=== PATIENT | male | born 1960 | race Caucasian/White ===

== ENCOUNTER 2018-07-06 22:16 | Inpatient (IN) | payer OTHER ==
[~2018-07-06] VITALS: Ht 177.8 cm; Wt 68.6 kg
[2018-07-06 22:37] VITALS: Ht 177.8 cm; Wt 68.6 kg
[2018-07-06 23:00] LABS: BASOPHIL % 0.1 % (0-2); PLATELET COUNT 259 x10^3mcL (130-400); RED CELL DISTRIBUTION WIDTH 12.6 % (11.5-14.5)
[2018-07-06 23:13] LABS: CALCIUM 9.9 mg/dL (8.5-10.1); CARBON DIOXIDE 31.6 mmol/L (21-32); CREATININE SERUM 2.5 mg/dL (0.7-1.3); POTASSIUM SERUM 3.9 mmol/L (3.5-5.1)
[2018-07-06 23:18] LABS: ALBUMIN 4.4 g/dL (3.4-5.0)
[2018-07-06 23:54] LABS: UA SPECIFIC GRAVITY >=1.030 (1.005-1.035); microscopic required? YES; urine erythrocyte NEGATIVE (NEGATIVE)
[2018-07-07] MEDS ORDERED: GLIPIZIDE5 M2 PO (00:42)
[2018-07-07] MEDS ORDERED: METFORMIN HYDR500 M1 PO (00:42)
[2018-07-07 01:08] VITALS: BP 160/92
[2018-07-07 01:10] LABS: MAGNESIUM 1.9 mg/dL (1.8-2.4); PHOSPHOROUS 5.4 mg/dL (2.5-4.9)
[2018-07-07 01:28] LABS: FREE T4 1.06 ng/dL (0.76-1.46); FREE THYROXINE INDEX 3.5 ug/dL (1.4-4.5)
[2018-07-07 02:12] LABS: T3 TOTAL 0.98 ng/mL
[2018-07-07 05:39] VITALS: BP 146/83
[2018-07-07 06:21] LABS: CALCIUM 8.8 mg/dL (8.5-10.1); CARBON DIOXIDE 34.4 mmol/L (21-32); CREATININE SERUM 2.2 mg/dL (0.7-1.3); PHOSPHOROUS 5.2 mg/dL (2.5-4.9); POTASSIUM SERUM 3.7 mmol/L (3.5-5.1)
[2018-07-07 07:45] VITALS: BP 146/87
[2018-07-07 09:07] LABS: BASOPHIL % 0.2 % (0-2); PLATELET COUNT 210 x10^3mcL (130-400)
[2018-07-07 16:02] VITALS: BP 143/86
[2018-07-07 20:45] VITALS: BP 151/86
[2018-07-07 22:58] LABS: AMPHETAMINE QUAL UR NONE DETECTED (See below)
[2018-07-08 05:23] VITALS: BP 174/98
[2018-07-08 06:48] LABS: BASOPHIL % 1.3 % (0-2); PLATELET COUNT 188 x10^3mcL (130-400); RED CELL DISTRIBUTION WIDTH 12.7 % (11.5-14.5)
[2018-07-08 07:30] LABS: CALCIUM 8.3 mg/dL (8.5-10.1); CARBON DIOXIDE 28.5 mmol/L (21-32); CHLORIDE SERUM 106 mmol/L (98-107); CREATININE SERUM 1.2 mg/dL (0.7-1.3); GFR1 > 60 mL/min; GLUCOSE SERUM 130 mg/dL (74-106); MAGNESIUM 2.1 mg/dL (1.8-2.4); PHOSPHOROUS 2.6 mg/dL (2.5-4.9); POTASSIUM SERUM 3.4 mmol/L (3.5-5.1); SODIUM SERUM 143 mmol/L (136-145)
[2018-07-08 09:36] VITALS: BP 182/97
[2018-07-08 17:13] VITALS: BP 166/90
[2018-07-08 21:01] VITALS: BP 156/93
[2018-07-09 06:18] VITALS: BP 158/90
[2018-07-09 06:32] LABS: CALCIUM 7.6 mg/dL (8.5-10.1); CARBON DIOXIDE 26.1 mmol/L (21-32); CHLORIDE SERUM 106 mmol/L (98-107); CREATININE SERUM 0.9 mg/dL (0.7-1.3); GFR1 > 60 mL/min; GLUCOSE SERUM 139 mg/dL (74-106); MAGNESIUM 1.7 mg/dL (1.8-2.4); PHOSPHOROUS 2.1 mg/dL (2.5-4.9); POTASSIUM SERUM 3.6 mmol/L (3.5-5.1); SODIUM SERUM 142 mmol/L (136-145)
[2018-07-09 10:13] VITALS: BP 146/81
[2018-07-09 10:30] LABS: BASOPHIL % 0.9 % (0-2); PLATELET COUNT 190 x10^3mcL (130-400); RED CELL DISTRIBUTION WIDTH 12.3 % (11.5-14.5)
[2018-07-09] MEDS ORDERED: NAP375 PO (10:57)
[2018-07-09] MEDS ORDERED: MIRUD PO (11:20)
[2018-07-09 11:53] VITALS: BP 146/81
== END 2018-07-09 12:05 | disposition home or self-care (01) | DRG 388 ==
LOC: ED 22:16 → MU 07-07 00:21
PROVIDERS: Emergency Medicine; ADMIT Internal Medicine
PROC: 0D9670Z Drainage of Stomach with Drainage Device, Via Natural or Artificial Opening (ICD-10-PCS; principal; 2018-07-07)
DX: K56.600 Partial intestinal obstruction, unspecified as to cause (principal); N17.0 Acute kidney failure with tubular necrosis; K56.7 Ileus, unspecified; E11.65 Type 2 diabetes mellitus with hyperglycemia; I10 Essential (primary) hypertension; R74.0 Nonspecific elevation of levels of transaminase and lactic acid dehydrogenase [LDH]; K57.30 Diverticulosis of large intestine without perforation or abscess without bleeding; E87.6 Hypokalemia; K76.0 Fatty (change of) liver, not elsewhere classified; E83.42 Hypomagnesemia; E83.39 Other disorders of phosphorus metabolism; Z68.24 Body mass index [BMI] 24.0-24.9, adult; Z79.84 Long term (current) use of oral hypoglycemic drugs
CPT/HCPCS: 82962; 83880; 84439; A9698; J1885; J2405; J2765; J3480; J7030; Q0092; Q9967

== ENCOUNTER 2018-08-30 10:36 | Emergency (ER) | payer OTHER ==
[~2018-08-30] VITALS: Ht 167.6 cm; Wt 68.0 kg
[~2018-08-30 10:36] MED LIST: GLIPIZIDE5 M2 PO; METFORMIN HYDR500 M1 PO; MIRUD PO; NAP375 PO
[2018-08-30 10:51] VITALS: Ht 167.6 cm; Wt 68.0 kg
[2018-08-30 12:01] LABS: BASOPHIL % 0.5 % (0-2); PLATELET COUNT 202 x10^3mcL (130-400); RED CELL DISTRIBUTION WIDTH 13.2 % (11.5-14.5)
[2018-08-30 12:04] LABS: CALCIUM 9.1 mg/dL (8.5-10.1); CARBON DIOXIDE 28.7 mmol/L (21-32); CHLORIDE SERUM 99 mmol/L (98-107); CREATININE SERUM 1.2 mg/dL (0.7-1.3); GFR1 > 60 mL/min; GLUCOSE SERUM 320 mg/dL (74-106); POTASSIUM SERUM 3.5 mmol/L (3.5-5.1); SODIUM SERUM 140 mmol/L (136-145)
[2018-08-30 12:08] LABS: ALBUMIN 4.2 g/dL (3.4-5.0); ALKALINE PHOSPHATASE 77 U/L (46-116); ALT/SGPT 86 U/L (16-63); AST/SGOT 46 U/L (15-37); BILIRUBIN TOTAL 0.93 mg/dL (0.20-1.00)
[2018-08-30 12:10] LABS: TOTAL PROTEIN, SERUM 8.4 g/dL (6.4-8.2)
[2018-08-30 12:15] LABS: UA SPECIFIC GRAVITY <=1.005 (1.005-1.035); microscopic required? YES; urine erythrocyte TRACE (NEGATIVE)
[2018-08-30 16:39] VITALS: BP 182/64
== END 2018-08-30 16:39 | disposition home or self-care (01) ==
LOC: ED 10:36
PROVIDERS: Emergency Medicine
DX: E11.65 Type 2 diabetes mellitus with hyperglycemia (principal); I10 Essential (primary) hypertension; R50.9 Fever, unspecified; Z76.0 Encounter for issue of repeat prescription
CPT/HCPCS: 87804; J1815; J3490; Q0092